=== PATIENT | female | born 1935 | race Caucasian/White ===

== ENCOUNTER 2018-08-23 07:58 | Day surgery (SDC) | payer MEDICARE, BC ==
[2018-08-21 12:39] LABS: BASOPHILS % (AUTO) 0.4 % (0-1); EOSINOPHILS # (AUTO) 0.5 X10'3 (0-0.9); EOSINOPHILS % (AUTO) 7.5 % (0-6); HEMATOCRIT 44.1 % (35.0-45.0); HEMOGLOBIN 14.7 g/dl (12.0-16.0); LYMPHOCYTES # (AUTO) 0.8 X10'3 (1.1-4.8); LYMPHOCYTES % (AUTO) 13.1 % (21-51); MEAN CORPUSCULAR HGB CONC 33.4 g/dL (33.0-36.5); MEAN CORPUSCULAR VOLUME 89.8 FL (78-98); MEAN PLATELET VOLUME 9.1 FL (7.4-10.4); MONOCYTES # (AUTO) 0.6 X10'3 (0-0.9); MONOCYTES % (AUTO) 9.6 % (2-12); NEUTROPHILS # (AUTO) 4.2 X10'3 (1.8-7.7); NEUTROPHILS % (AUTO) 69.4 % (42-75); PLATELET COUNT 227 X10'3 (140-440); RED BLOOD COUNT 4.91 X10'6 (4.20-5.60); RED CELL DISTRIBUTION WIDTH 14.7 % (11.5-14.5)
[2018-08-21 12:59] LABS: ALBUMIN 3.9 G/DL (3.4-5.0); ANION GAP 9 (8-16); BLOOD UREA NITROGEN 18 MG/DL (7-18); BUN/CREATININE RATIO 18.6 (6.6-38.0); CALCIUM 9.9 MG/DL (8.5-10.1); CHLORIDE 103 MMOL/L (99-107); CREATININE 0.97 MG/DL (0.40-0.90); GLUCOSE 100 MG/DL (70-104); SODIUM 142 MMOL/L (135-145); eGFR 55 ML/MIN
[2018-08-21 13:03] LABS: PARTIAL THROMBOPLASTIN TIME 28 SECONDS (22-32); PROTHROMBIN TIME 10.1 SECONDS (9.0-12.0)
[2018-08-23] VITALS (9 sets, daily range): BP systolic 20–157; BP diastolic 38–71
[~2018-08-23] VITALS: Ht 160 cm; Wt 67.4 kg
[~2018-08-23 07:58] MED LIST: ASPI81TA52 PO; CALC300T4 PO; CHOL2000 PO; MULT-1179 PO
[2018-08-23] MEDS ORDERED: LOSA50TA3 PO (08:22)
[2018-08-23] MEDS ORDERED: POTA10CA44 PO (08:22)
[2018-08-23] MEDS ORDERED: CARV-49 PO (08:22)
[2018-08-23] MEDS ORDERED: FURO40TA4 PO (08:22)
[2018-08-23] MEDS ORDERED: OMEG-42 PO (08:22)
[2018-08-23] MEDS ORDERED: LIDOcaine 1% (10mg/ml) 2ml vial ONE (08:24)
[2018-08-23] MEDS ORDERED: LIDOcaine 1% (10mg/ml)w/preservative injection 20ml MDV ONE (08:35)
[2018-08-23] MEDS ORDERED: heparin 1,000 UNITS/NS 500ml 500 ML ONE (08:35)
[2018-08-23] MEDS ORDERED: iohexol 350MG/ML 100ml bottle IV ONE (08:35)
[2018-08-23] MEDS ORDERED: midazolam 2 mg/2 ml injection ONE (09:05)
[2018-08-23] MEDS ORDERED: LORazepam 0.5 MG tablet PO PRN (09:15)
[2018-08-23] MEDS ORDERED: diphenhydrAMINE 25mg capsule PO PRN (09:15)
[2018-08-23] MEDS ORDERED: normal saline 1000ml 1,000 ML IV SCH (09:15)
[2018-08-23] MEDS ORDERED: fentaNYL/PF 50MCG/1 ML 2ML syringe ONE (09:23)
[2018-08-23] MEDS ORDERED: HYDROcodone/acetaminophen 10/325mg tab PO PRN (10:10)
[2018-08-23] MEDS ORDERED: acetaminophen 325mg tablet PO PRN (10:10)
[2018-08-23] MEDS ORDERED: OXAZEpam 15mg capsule PO PRN (10:10)
[2018-08-23] MEDS ORDERED: ondansetron/PF 4mg/2ml inj IV PRN (10:10)
[2018-08-23] MEDS ORDERED: proCHLORperazine 10 MG/2 ml inj IV PRN (10:10)
[2018-08-23] MEDS ORDERED: HYDROcodone/acetaminophen 5mg/325mg tablet PO PRN (10:10)
== END 2018-08-23 13:10 | disposition home or self-care (01) ==
LOC: SSTAY O 07:58
PROVIDERS: ATTEND Internal Medicine Interventional Cardiology
DX: I25.10 Atherosclerotic heart disease of native coronary artery without angina pectoris (principal); I50.9 Heart failure, unspecified; I11.0 Hypertensive heart disease with heart failure; I35.0 Nonrheumatic aortic (valve) stenosis
CPT/HCPCS: 36415; 80048; 85025; 85610; 85730; 93460; 99152; 99153; A6257; J1644; J2001; J2250; J3010; J3490; J7030; Q9967; A4620; C1769